=== PATIENT | female | born 1985 | race Caucasian/White ===

== ENCOUNTER 2018-10-28 21:35 | Emergency (ER) | payer BC ==
[2018-10-28] MEDS ORDERED: MAGNESIUM HYDROXIDE/AL HYDROX 30 ML, LIDOCAINE VISC 2% 15ML 15 ML PO ONE ×2 (21:51)
--- NOTE | 2018-10-28 21:56 | Emergency Department Record ---
History of Present Illness - General Chief Complaint: Abdominal Pain Stated Complaint: UPPER ABD PAIN/DIRO/L HAND/BOTH FEET TINGLING Time Seen by Provider: 10/28/18 21:37 Source: Patient Mode of Arrival: Ambulatory Limitations: No limitations - History of Present Illness Initial Comments: 32 yo female presents to ED for evaluation of "diaphragm pain" that began this afternoon. Patient reports a history of previous symptoms, however her symptoms normally fade away. Patient denies vomiting or change in stools, reports "it's hard to take a deep breath in due to the pain symptoms". Patient indicated that her pain symptoms are located in the epigastric region. Patient denies health problems at her baseline. MD Complaint: Abdominal pain Onset/Timin -: Hour(s) Location: Epigastric Radiation: None Migration to: No migration Severity: Moderate Severity scale (1-10): 4 Quality: Sharp, Stabbing Consistency: Constant Improves With: Nothing Worsens With: Other (Deep breaths) Associated Symptoms: Nausea - Related Data LMP (females 10-50): This week Patient : No Home Medications Medication Instructions Recorded Confirmed Last Taken Cholecalciferol (Vitamin D3) 1,000 unit PO DAILY 10/28/18 10/28/18 Unknown [Vitamin D3] Cyanocobalamin (Vitamin B-12) 1,000 mcg PO DAILY 10/28/18 10/28/18 Unknown [Vitamin B-12] Valacyclovir HCl [Valacyclovir] 500 mg PO DAILY PRN 10/28/18 10/28/18 Unknown Allergies Allergy/AdvReac Type Severity Reaction Status Date / Time No Known Drug Allergies Allergy Verified 10/28/18 21:51 Travel Screening - Travel/Exposure Within Last 30 Days Have you traveled within the last 30 days?: No - Travel Symptoms Symptom Screening: None Review of Systems Constitutional: Denies: Chills, Fever, Malaise, Night sweats Eyes: Denies: Eye discharge, Eye pain ENT: Denies: Congestion, Ear pain, Epistaxis Respiratory: Denies: Cough, Dyspnea Cardiovascular: Denies: Chest pain, Dyspnea on exertion Endocrine: Denies: Fatigue, Heat or cold intolerance Gastrointestinal: Reports: Abdominal pain. Denies: Nausea, Vomiting Genitourinary: Denies: Incontinence, Retention Musculoskeletal: Denies: Arthralgia, Back pain, Gout, Joint swelling, Other Skin: Denies: Change in color Neurological: Denies: Abnormal gait, Confusion, Headache, Seizure Psychiatric: Denies: Anxiety Hematological/Lymphatic: Denies: Anemia, Blood Clots Physical Exam - General General Appearance: Alert, Oriented x3, Cooperative, Mild distress Limitations: No limitations - Head Head exam: Atraumatic, Normocephalic, Normal inspection Head exam detail: negative: Abrasion, Contusion, Delatorre's sign, General tenderness, Hematoma, Laceration - Eye Eye exam: Normal appearance. negative: Conjunctival injection, Periorbital swelling, Periorbital tenderness, Scleral icterus - ENT Ear exam: negative: Auricular hematoma, Auricular trauma Nasal Exam: negative: Active bleeding, Discharge, Dried blood, Foreign body Mouth exam: negative: Drooling, Laceration, Muffled voice, Tongue elevation - Neck Neck exam: Normal inspection. negative: Meningismus, Tenderness - Respiratory Respiratory exam: Normal lung sounds bilaterally. negative: Rales, Respiratory distress, Rhonchi, Stridor - Cardiovascular Cardiovascular Exam: Regular rate, Normal rhythm, Normal heart sounds - GI/Abdominal GI/Abdominal exam: Soft. negative: Rebound, Rigid, Tenderness - Rectal Rectal exam: Deferred - exam: Deferred - Extremities Extremities exam: Normal inspection. negative: Calf tenderness, Pedal edema, Tenderness - Back Back exam: Denies: CVA tenderness (R), CVA tenderness (L) - Neurological Neurological exam: Alert, Normal gait, Oriented X3 - Psychiatric Psychiatric exam: Normal affect, Normal mood - Skin Skin exam: Normal color. negative: Abrasion Type of lesion: negative: abrasion Course Vital Signs 10/28/18 21:46 Temperature 97.6 F Pulse Rate 78 Respiratory 20 Rate Blood Pressure 110/75 Pulse Ox 99 - Reevaluation(s) Reevaluation #1: 10/28/18 21:58 EKG: NSR 78 Normal axis, normal intervals No acute ST-T wave changes PERC clinical decision rule was applied, and the patient does not have any of the following: -Age > 50 years -Pulse > 100 -Oxygen Saturation < 94% -History of Hemoptysis -Unilateral leg swelling -History or PE/DVT -Recent surgery or Trauma -Oral contraceptive/Hormone use 10/28/18 22:06 Reevaluation #2: 10/28/18 22:41 Laboratory studies were reviewed: WBC 17.9 AST 203 ALT 113 Alk phos 166 Lipase 291 Laboratory studies are otherwise grossly unremarkable for an acute process. Bedside US was performed, diffuse shadowing present, no large stones visualized. No marcelino-cholecystic fluid present. Will initiate transfer to [facility] for formal US to exclude acute cholecystitis. 10/28/18 22:46 Case was discussed with Dr. Foster, will accept transfer for US abdomen. Medical Decision Making - Lab Data Result diagrams: 10/28/18 21:48 10/28/18 21:48 Disposition Disposition: Transfer Clinical Impression: Elevated liver enzymes, Epigastric abdominal pain Leukocytosis Qualifiers: Leukocytosis type: leukemoid reaction Qualified Code(s): D72.823 - Leukemoid reaction Pancreatitis Qualifiers: Chronicity: acute Pancreatitis type: unspecified pancreatitis type Acute pancreatitis complication: unspecified Qualified Code(s): K85.90 - Acute pancreatitis without necrosis or infection, unspecified Disposition: Acute Care Hospital Transfer Transfer To: [facility] Reason For Transfer: US abdomen Accepting Physician: Kristin Time Discussed w/Accepting Physician: 22:45 Condition: (2) Stable Forms: Patient Portal Access Time of Disposition: 22:46 Quality - Quality Measures Quality Measures: N/A - Blood Pressure Screening Does Patient Have Any of the Following: No Blood Pressure Classification: Pre-Hypertensive BP Reading Systolic Measurement: 120 Diastolic Measurement: 80 Screening for High Blood Pressure: < Pre-Hypertensive BP, F/U Documented > [ [id number]] Pre-Hypertensive Follow-up Interventions: Referral to alternative/primary care provider.
[2018-10-28 21:57] LABS: BASO % 0.1 % (0-6); EOS % 0.3 % (0-6); HEMATOCRIT 42.8 % (35.0-47.0); HEMOGLOBIN 14.2 gm/dl (11.6-16.0); LYMPH % 14.1 % (16-45); MEAN CELL VOLUME 90.5 fl (81-97); MEAN CORPUSCULAR HGB CONC 33.2 g/dl (32-36); MEAN PLATELET VOLUME 10.3 fl (7.4-10.4); MONO % 5.5 % (0-9); PLATELET COUNT 427 K/uL (130-400); RED BLOOD COUNT 4.73 M/uL (3.80-5.40); RED CELL DISTRIBUTION WIDTH 12.4 % (11.5-14.5); WHITE BLOOD COUNT W/O DIFF 17.9 K/uL (4.2-12.2)
[2018-10-28 21:58] LABS: URINE APPEARANCE CLEAR; URINE BILIRUBIN NEGATIVE (NEGATIVE); URINE BLOOD LARGE (NEGATIVE); URINE COLOR YELLOW; URINE GLUCOSE (UA) NEGATIVE (NEGATIVE); URINE KETONE TRACE (NEGATIVE); URINE LEUKOCYTE ESTERASE NEGATIVE (NEGATIVE); URINE NITRITE NEGATIVE (NEGATIVE)
[2018-10-28] MEDS ORDERED: 0.9 % SODIUM CHLORIDE 1000ML 500 ML IV SCH (22:00)
[2018-10-28 22:02] LABS: URINE EPITHELIAL CELLS 0 - 2 (FEW); URINE WBC 0 - 2 (0-2/hpf)
[2018-10-28 22:03] LABS: URINE BACTERIA NONE SEEN
[2018-10-28 22:09] LABS: BLOOD UREA NITROGEN 12 mg/dL (6-20); CREATININE 0.6 mg/dL (0.5-0.9); EST GLOMERULAR FILTRATION RATE > 60 mL/min
[2018-10-28 22:10] LABS: TOTAL PROTEIN 8.3 g/dL (6.6-8.7)
[2018-10-28 22:12] LABS: GLUCOSE,RANDOM 124 mg/dL (74-109)
[2018-10-28 22:14] LABS: ALT/SGPT 113 U/L (<33)
[2018-10-28 22:15] LABS: ALB/GLOB RATIO 1.3 (1.1-1.8); ALBUMIN 4.7 g/dL (4.0-5.0); ALKALINE PHOSPHATASE 166 U/L (35-104); AST/SGOT 203 U/L (10.0-35.0); LIPASE 291 U/L (13-60)
--- NOTE | 2018-10-29 22:07 | RADIOLOGY REPORT ---
EXAM: CHEST 2 VIEWS HISTORY: DIFFICULTY IN BREATHING. TECHNIQUE: Frontal and lateral views of the chest were performed. FINDINGS: Heart size is normal. The lungs are clear. The osseous structures are normal. IMPRESSION: NEGATIVE CHEST EXAMINATION. JOB NUMBER: [id number] MTDD
== END 2018-10-28 23:08 | disposition short-term general hospital (02) ==
LOC: ER 21:35
DX: K85.90 Acute pancreatitis without necrosis or infection, unspecified (principal); R10.13 Epigastric pain; R11.0 Nausea; R94.5 Abnormal results of liver function studies; D72.823 Leukemoid reaction; R06.00 Dyspnea, unspecified
CPT/HCPCS: 71046; 80053; 81001; 83690; 85025; 93005; 93010; 99285; J7030